=== PATIENT | female | born 1975 | race Caucasian/White ===

== ENCOUNTER 2020-04-02 21:38 | Emergency (ER) | payer BC, OTHER ==
[~2020-04-02] VITALS: Ht 177.8 cm; Wt 77.3 kg
--- NOTE | 2020-04-02 22:09 | ED Fall/Injury ---
General Chief Complaint: Trauma-Non Activation Stated Complaint: LACERATION ON KNEES AND FINGER PAIN Nursing Triage Note: c/o fall from standing position while running with pet. c/o left 4th/5th finger pain. deformity noted to left 5th finger. bilateral knee abraisions. left distal 3rd finger abraision. denies loc/other injuries. History of Present Illness Date Seen by Provider: Apr 02, 2020 Time Seen by Provider: 21:45 Initial Comments 45 year old female presents after fall. She was walking her dog, when it tried to take off and she fell, landing on her knees and left hand. Deformity noted to 5th finger, left hand. Reports last tetanus was 1 year ago. Declines need for pain medication. Occurred: just prior to arrival Injuries/Pain Location: upper extremity (right hand), lower extremity (bilat knees. ) Loss of Consciousness: no loss of consciousness Associated Symptoms (Fall): Denies Symptoms Allergies and Home Medications Allergies Coded Allergies: No Known Drug Allergies (Unverified , 04/02/20) Home Medications No Active Prescriptions or Reported Meds Patient Home Medication List Home Medication List Reviewed: Yes Review of Systems Review of Systems Constitutional: no symptoms reported, see HPI Musculoskeletal: see HPI, joint pain (5th finger left hand) Skin: see HPI, other (abrasion bilat knees. ) Past Wkmgoiq-Spbddz-Woindw Hx Past Med/Social Hx: Reviewed Nursing Past Med/Soc Hx Patient Social History Alcohol Use: Occasionally Uses Recreational Drug Use: No Smoking Status: Never a Smoker 2nd Hand Smoke Exposure: No Recent Foreign Travel: No Contact w/Someone Who Travel: No Recent Infectious Disease Expo: No Recent Hopitalizations: No Physical Abuse: No Sexual Abuse: No Mistreated: No Fear: No Immunizations Up To Date Tetanus Booster (TDap): Less than 5yrs Seasonal Allergies Seasonal Allergies: No Past Medical History Surgeries: No Respiratory: No Cardiac: No Neurological: No : No Genitourinary: No Gastrointestinal: No Musculoskeletal: No Endocrine: No HEENT: No Cancer: No Psychosocial: No Integumentary: No Blood Disorders: No Physical Exam Vital Signs Vital Signs - First Documented 04/02/20 21:43 Temp 36.8 Pulse 88 Resp 18 B/P (MAP) 92/50 (64) Pulse Ox 97 O2 Delivery Room Air Capillary Refill : Less Than 3 Seconds Height, Weight, BMI Height: '" Weight: lbs. oz. kg; 24.00 BMI Method: General Appearance: WD/WN, no apparent distress Cardiovascular: normal peripheral pulses, regular rate, rhythm Respiratory: chest non-tender, lungs clear, normal breath sounds Gastrointestinal: normal bowel sounds, non tender, soft Extremities: normal range of motion (except 5th finger left hand), no pedal edema, no calf tenderness, normal capillary refill, other (tenderness to palpation left 4-5 fingers. No wrist or hand tenderness. ) Neurologic/Psychiatric: no motor/sensory deficits, alert, normal mood/affect, oriented x 3 Skin: normal color, warm/dry, other (superficial abrasions to bilat knees, no active bleeding. ) unable to tolerate passive or active ROM to 5th finger left hand, secondary to pain . Full flex and ext thumb-4th finger left hand. Cap refill and sensation intact. Ecchymosis noted to base of 4th finger with mild tenderness. Melecio Coma Score Best Eye Response: (4) Open Spontaneously Best Verbal Response: (5) Oriented Best Motor Response: (6) Obeys Commands Bessie Total: 15 Progress/Results/Core Measures Results/Orders My Orders Orders - EAMON COWAN Hand, Left, 3 Views (04/02/20 21:51) Finger(S) (04/02/20 21:51) Hydrocodone/Apap 7.5/325 Tab (Lortab 7. (04/02/20 22:45) Rx-Hydrocodone/Apap 5-325 Mg (Rx-Vicodin (04/02/20 23:15) Medications Given in ED Current Medications Medications Dose Ordered Sig/Hunter Route Start Time Stop Time Status Last Admin Dose Admin Acetaminophen/ Hydrocodone Bitart 1 ea ONCE ONCE PO 04/02/20 22:45 04/02/20 22:46 DC 04/02/20 22:45 1 EA Vital Signs/I&O 04/02/20 21:43 Temp 36.8 Pulse 88 Resp 18 B/P (MAP) 92/50 (64) Pulse Ox 97 O2 Delivery Room Air Blood Pressure Mean: 64 Progress Progress Note : Time: 21:45 Progress Note Patient seen and evaluated. Wounds cleaned with hibiclens and sterile saline. Will obtain x-ray of left hand and finger. 6295 triple antibiotic oint and dressings applied to knees with 6 inch lorena wraps. X-ray results of hand/fingers reviewed with her. Hydrocodone for pain. 2244 Finger placed in aluminum splint to keep MCP, PIP and DIP in full extension. Patient tolerated splint placement. Neurovasc status remains intact left hand. 2299 discharge instructions and return reviewed with patient. All questions answered. Diagnostic Imaging Diagonstic Imaging: Xray Plain Films/CT/US/NM/MRI: hand, other (fingers) Comments Minimally displaced fracture proximal phalynx 5th finger left hand. No other fractures or acute findings. Will be over-read by radiology tomorrow. Departure Impression Primary Impression: Fall Qualified Codes: W19.XXXA - Unspecified fall, initial encounter Additional Impressions: Abrasion of both knees Fracture of distal phalanx of finger of left hand Disposition: HOME, SELF-CARE Condition: Improved Departure-Patient Inst. Decision time for Depature: 22:30 Referrals: NO,LOCAL PHYSICIAN (PCP) Primary Care Physician CAPO HEBERT MD Patient Instructions: Finger Fracture (DC), Wound Care (DC) Add. Discharge Instructions: Call Dr. Hebert's office tomorrow for follow up. Ice and Elevate left 5th finger, wear splint at all times. Alternate between Tylenol 650 mg and Ibuprofen 600 mg every 4 hours. Clean abrasions to knees with soap and water, apply triple antibiotic oint, three times daily. Keep wounds to knees clean and dry for 2 weeks, may shower, but no hot tubs, bath tubs, swimming pools or lakes. Return to the emergency department for new, urgent health. All discharge instructions reviewed with patient and/or family. Voiced understanding. Scripts No Active Prescriptions or Reported Meds Copy Copies To 1: CAPO HEBERT MD, AMY ARNP Apr 02, 2020 22:09
[2020-04-02] MEDS ORDERED: HYDROcodone/APAP 7.5 MG/325 MG (LORTAB, LORCET PLUS) TABLET PO ONE (22:45)
[2020-04-02 23:10] VITALS: BP 127/81
[2020-04-02] MEDS ORDERED: RX-HYDROCODONE/APAP 5/325 MG #4 TAB PK PO PRN (23:15)
--- NOTE | 2020-04-03 05:53 | Diagnostic Imaging Report ---
INDICATION: Fall, pain TECHNIQUE: 2 views of the left little finger 10:20 PM CORRELATION STUDY: None FINDINGS: There is a predominantly transversely oriented fracture at the base of the proximal phalanx little finger. There is suspected fracture line extending into the articular base. There is rather significant dorsal angulation of the main distal fracture fragment. Remaining middle phalanx, distal phalanx of the little finger is otherwise intact. Finger is held in partial flexure. Suggested fracture at the base of the proximal phalanx of the 4th digit on the accompanying hand views not well appreciated on this study. IMPRESSION: 1. Transversely oriented fracture with fairly significant amount of angulation at the base of the proximal phalanx left little finger. Dictated by: Dictated on workstation # [id number]
--- NOTE | 2020-04-03 05:56 | Diagnostic Imaging Report ---
INDICATION: Fall, fracture TECHNIQUE: Three views of the left hand. CORRELATION STUDY: None FINDINGS: There is a predominantly transversely oriented fracture at the proximal base of the little finger. Fracture line appears to extend into the articular surface with slight offset at the articular base. There is rather significant dorsal angulation of the main distal fracture fragment with slight impaction. Additionally, there is a slightly impacted otherwise nondisplaced fracture involving the similar location of the proximal phalanx of the ring finger. Remaining osseous structures otherwise intact. IMPRESSION: 1. Angulated fracture at the base of the proximal phalanx little finger. 2. Relatively nondisplaced fracture is slightly impacted at the proximal base ring finger. Dictated by: Dictated on workstation # [id number]
== END 2020-04-02 23:09 | disposition home or self-care (01) ==
LOC: EDBD 21:40 → ER 21:40
DX: S62.617A Displaced fracture of proximal phalanx of left little finger, initial encounter for closed fracture (principal); S60.042A Contusion of left ring finger without damage to nail, initial encounter; S80.211A Abrasion, right knee, initial encounter; S80.212A Abrasion, left knee, initial encounter; R40.2142 Coma scale, eyes open, spontaneous, at arrival to emergency department; R40.2252 Coma scale, best verbal response, oriented, at arrival to emergency department; R40.2362 Coma scale, best motor response, obeys commands, at arrival to emergency department; W18.39XA Other fall on same level, initial encounter
CPT/HCPCS: 29130; 73130; 73140